=== PATIENT | female | born 1960 | race Caucasian/White ===

== ENCOUNTER → 2023-11-18 | Outpatient (CLI) | payer OTHER ==
--- NOTE | 2023-11-18 12:06 | US ---
EXAMINATION TYPE: US abdomen complete DATE OF EXAM: 11/18/2023 COMPARISON: NONE CLINICAL INDICATION: Female, 63 years old with history of R10.11 RIGHT UPPER QUADRANT PAIN; nausea TECHNIQUE: Multiple sonographic images of the abdomen are obtained. FINDINGS: EXAM MEASUREMENTS: Liver Length: 13.1 cm Gallbladder Wall: .2 cm CBD: .5 cm Spleen: 9.5 cm Right Kidney: 10.7 x 5.1 x 3.6 cm Left Kidney: 11.3 x 5.2 x 3.4 cm [facility] ASSISTANT NOTES: Pancreas: Obscured by bowel gas Liver: wnl Gallbladder: No stones seen Evidence for sonographic Mendoza's sign: No CBD: wnl Spleen: wnl Right Kidney: wnl Left Kidney: wnl Upper IVC: wnl Abd Aorta: wnl The liver is homogenous. The intrahepatic portion of the IVC and proximal abdominal aorta are within normal limits. There is no evidence of cholelithiasis. Common bile duct is unremarkable. The visu alized portions of the pancreas are homogenous. The spleen is unremarkable. Kidneys are symmetric a nd free of hydronephrosis. No renal lesions are seen. IMPRESSION: Unremarkable exam. No gallstones or evidence of right upper quadrant inflammatory processes
== END | disposition home or self-care (01) ==
LOC: RADUSWWP 09:21
PROVIDERS: ATTEND Family Medicine
DX: R10.11 Right upper quadrant pain (principal)
CPT/HCPCS: 76700